=== PATIENT | male | born 1945 | race Caucasian/White ===

== ENCOUNTER 2017-10-02 10:36 | Emergency (ER) | payer OTHER, MEDICARE ==
[~2017-10-02] VITALS: Ht 182.9 cm; Wt 83.9 kg
[2017-10-02 12:32] VITALS: BP 169/79
== END 2017-10-02 14:12 | disposition home or self-care (01) ==
LOC: ED 10:36
DX: S42.202A Unspecified fracture of upper end of left humerus, initial encounter for closed fracture (principal); S01.112A Laceration without foreign body of left eyelid and periocular area, initial encounter; S50.312A Abrasion of left elbow, initial encounter; S50.311A Abrasion of right elbow, initial encounter; G20 Parkinson's disease; F03.90 Unspecified dementia, unspecified severity, without behavioral disturbance, psychotic disturbance, mood disturbance, and anxiety; W17.89XA Other fall from one level to another, initial encounter; Y93.89 Activity, other specified; Y99.8 Other external cause status; Y92.89 Other specified places as the place of occurrence of the external cause
CPT/HCPCS: 90715; J1885; J2001

== ENCOUNTER → 2017-10-03 | Outpatient (CLI) | payer OTHER, MEDICARE ==
[~2017-10-03] MED LIST: ARICEPT10 MG PO; COZAAR100 MG PO; FLUOXETINE HYDR20 M2 PO; LIPITOR80 MG PO; SEROQUEL100 MG PO; SINEMET 25-1001 TAB PO; TAMSULOSIN HYD0.4 M1 PO
== END | disposition home or self-care (01) ==
LOC: RD 11:32
PROC: BP2 Imaging, Non-Axial Upper Bones, Computerized Tomography (CT Scan) (ICD-10-PCS; principal; 2017-10-03)
DX: S42.202A Unspecified fracture of upper end of left humerus, initial encounter for closed fracture (principal); X58.XXXA Exposure to other specified factors, initial encounter; Y92.9 Unspecified place or not applicable

== ENCOUNTER 2017-10-04 08:26 | Inpatient (IN) | payer OTHER, MEDICARE ==
[~2017-10-04] VITALS: Ht 170.2 cm; Wt 75.0 kg
[2017-10-04 09:39] LABS: CARBON DIOXIDE 27.6 mmol/L (21-32); CHLORIDE SERUM 99 mmol/L (98-107); CREATININE SERUM 2.2 mg/dL (0.7-1.3); GLUCOSE SERUM 124 mg/dL (74-106); POTASSIUM SERUM 3.9 mmol/L (3.5-5.1); SODIUM SERUM 135 mmol/L (136-145)
[2017-10-04 09:40] LABS: BASOPHIL % 0.6 % (0-2); PLATELET COUNT 198 x10^3mcL (130-400); RED CELL DISTRIBUTION WIDTH 14.2 % (11.5-14.5)
[2017-10-04 09:44] LABS: ALBUMIN 3.8 g/dL (3.4-5.0); ALKALINE PHOSPHATASE 127 U/L (46-116); ALT/SGPT 12 U/L (16-63); AST/SGOT 23 U/L (15-37); CHOLESTEROL 189 mg/dL (<200); LIPASE 96 IU/L (73-393); TOTAL PROTEIN, SERUM 7.4 g/dL (6.4-8.2); TRIGLYCERIDES 61 mg/dL (<150)
[2017-10-04 09:46] LABS: CHOLESTEROL/HDL RATIO 1.7; HDL CHOLESTEROL 113 mg/dL (40-60)
[2017-10-04 09:54] LABS: T3 TOTAL 0.69 ng/mL
[2017-10-04 09:58] LABS: FREE T4 0.95 ng/dL (0.76-1.46); FREE THYROXINE INDEX 2.5 ug/dL (1.4-4.5)
[2017-10-04 10:18] LABS: MAGNESIUM 2.4 mg/dL (1.8-2.4); PHOSPHOROUS 3.6 mg/dL (2.5-4.9)
[2017-10-04 10:32] VITALS: BP 148/64
[2017-10-04 12:07] LABS: microscopic required? NO
[2017-10-04] MEDS ORDERED: FLUOXETINE HYDR20 M2 PO (12:58)
[2017-10-04] MEDS ORDERED: TAMSULOSIN HYD0.4 M1 PO (12:58)
[2017-10-04] MEDS ORDERED: LIPITOR80 MG PO (12:59)
[2017-10-04] MEDS ORDERED: ARICEPT10 MG PO (12:59)
[2017-10-04] MEDS ORDERED: COZAAR100 MG PO (12:59)
[2017-10-04] MEDS ORDERED: SEROQUEL100 MG PO (13:00)
[2017-10-04] MEDS ORDERED: SINEMET 25-1001 TAB PO (13:01)
[2017-10-04 13:03] LABS: urine erythrocyte NEGATIVE (NEGATIVE)
[2017-10-04 13:40] LABS: AMPHETAMINE QUAL UR NONE DETECTED (NEG <=1000)
[2017-10-04 17:08] VITALS: BP 153/58
[2017-10-04 21:50] VITALS: BP 150/53
[2017-10-05 04:06] VITALS: BP 97/65
[2017-10-05 06:11] LABS: BASOPHIL % 0.7 % (0-2); PLATELET COUNT 169 x10^3mcL (130-400); RED CELL DISTRIBUTION WIDTH 14.3 % (11.5-14.5)
[2017-10-05 06:48] LABS: CALCIUM 8.3 mg/dL (8.5-10.1); CARBON DIOXIDE 26.2 mmol/L (21-32); CHLORIDE SERUM 107 mmol/L (98-107); CREATININE SERUM 1.2 mg/dL (0.7-1.3); GLUCOSE SERUM 86 mg/dL (74-106); POTASSIUM SERUM 3.9 mmol/L (3.5-5.1); SODIUM SERUM 141 mmol/L (136-145)
[2017-10-05 08:08] VITALS: BP 160/60; BP 168/75
[2017-10-05 11:01] VITALS: BP 122/55
[2017-10-05 15:50] VITALS: BP 129/44
[2017-10-05 17:06] VITALS: Ht 170.2 cm; Wt 75.0 kg
[2017-10-05 21:10] VITALS: BP 139/60
[2017-10-06 06:02] LABS: BASOPHIL % 0.4 % (0-2); PLATELET COUNT 153 x10^3mcL (130-400)
[2017-10-06 06:18] VITALS: BP 142/67
[2017-10-06 06:29] LABS: CALCIUM 7.8 mg/dL (8.5-10.1); CARBON DIOXIDE 26.1 mmol/L (21-32); CHLORIDE SERUM 104 mmol/L (98-107); CREATININE SERUM 0.9 mg/dL (0.7-1.3); GLUCOSE SERUM 113 mg/dL (74-106); POTASSIUM SERUM 3.9 mmol/L (3.5-5.1); SODIUM SERUM 139 mmol/L (136-145)
[2017-10-06 09:18] VITALS: BP 143/55
[2017-10-06 14:46] VITALS: BP 154/66
[2017-10-07 06:27] VITALS: BP 164/74
[2017-10-07 06:45] LABS: CALCIUM 7.9 mg/dL (8.5-10.1); CARBON DIOXIDE 25.4 mmol/L (21-32); CHLORIDE SERUM 105 mmol/L (98-107); CREATININE SERUM 0.9 mg/dL (0.7-1.3); GLUCOSE SERUM 90 mg/dL (74-106); MAGNESIUM 1.8 mg/dL (1.8-2.4); PHOSPHOROUS 3.3 mg/dL (2.5-4.9); SODIUM SERUM 140 mmol/L (136-145)
[2017-10-07 06:50] LABS: BASOPHIL % 0.6 % (0-2); PLATELET COUNT 159 x10^3mcL (130-400); RED CELL DISTRIBUTION WIDTH 13.9 % (11.5-14.5)
[2017-10-07 08:36] VITALS: BP 155/80
[2017-10-07 13:36] VITALS: BP 110/46
[2017-10-07 22:00] VITALS: BP 155/80
[2017-10-08 06:00] VITALS: BP 143/55
[2017-10-08 07:49] LABS: BASOPHIL % 0.5 % (0-2); PLATELET COUNT 174 x10^3mcL (130-400); RED CELL DISTRIBUTION WIDTH 14.1 % (11.5-14.5)
[2017-10-08 08:01] LABS: CARBON DIOXIDE 28.3 mmol/L (21-32); CHLORIDE SERUM 105 mmol/L (98-107); CREATININE SERUM 0.8 mg/dL (0.7-1.3); GLUCOSE SERUM 94 mg/dL (74-106); MAGNESIUM 1.8 mg/dL (1.8-2.4); PHOSPHOROUS 2.7 mg/dL (2.5-4.9); POTASSIUM SERUM 3.4 mmol/L (3.5-5.1); SODIUM SERUM 140 mmol/L (136-145)
[2017-10-08 09:03] VITALS: BP 149/57
[2017-10-08 13:09] VITALS: BP 130/48
[2017-10-08 17:34] VITALS: BP 119/83
[2017-10-08 22:21] VITALS: BP 149/56
[2017-10-09 05:15] VITALS: BP 157/57
[2017-10-09 06:25] LABS: CALCIUM 8.3 mg/dL (8.5-10.1); CARBON DIOXIDE 29.3 mmol/L (21-32); CHLORIDE SERUM 105 mmol/L (98-107); CREATININE SERUM 0.8 mg/dL (0.7-1.3); GLUCOSE SERUM 91 mg/dL (74-106); MAGNESIUM 1.8 mg/dL (1.8-2.4); PHOSPHOROUS 3.2 mg/dL (2.5-4.9); POTASSIUM SERUM 3.4 mmol/L (3.5-5.1); SODIUM SERUM 140 mmol/L (136-145)
[2017-10-09 06:38] LABS: BASOPHIL % 0.7 % (0-2); PLATELET COUNT 196 x10^3mcL (130-400); RED CELL DISTRIBUTION WIDTH 13.5 % (11.5-14.5)
[2017-10-09 09:24] VITALS: BP 123/72
[2017-10-09] MEDS ORDERED: KETOROLAC30 MG/ML IV (13:30)
[2017-10-09] MEDS ORDERED: COL100 PO (13:30)
[2017-10-09 13:54] VITALS: BP 123/72
[2017-10-09 17:07] VITALS: BP 149/71
== END 2017-10-09 18:27 | DRG 483 ==
LOC: ED 08:26 → MU 09:17 → DU 09:17 → MU 10-09 09:09
PROVIDERS: Neuromusculoskeletal Medicine, Sports Medicine; Specialist; ADMIT Family Medicine Sports Medicine
PROC: 0RRK0J6 Replacement of Left Shoulder Joint with Synthetic Substitute, Humeral Surface, Open Approach (ICD-10-PCS; principal; 2017-10-05 11:30)
DX: S42.202A Unspecified fracture of upper end of left humerus, initial encounter for closed fracture (principal); N17.0 Acute kidney failure with tubular necrosis; E87.1 Hypo-osmolality and hyponatremia; E87.6 Hypokalemia; S00.83XA Contusion of other part of head, initial encounter; G31.83 Neurocognitive disorder with Lewy bodies; F02.80 Dementia in other diseases classified elsewhere, unspecified severity, without behavioral disturbance, psychotic disturbance, mood disturbance, and anxiety; I10 Essential (primary) hypertension; D64.9 Anemia, unspecified; E78.00 Pure hypercholesterolemia, unspecified; F39 Unspecified mood [affective] disorder; F17.210 Nicotine dependence, cigarettes, uncomplicated; Z68.25 Body mass index [BMI] 25.0-25.9, adult; W18.30XA Fall on same level, unspecified, initial encounter; Y92.009 Unspecified place in unspecified non-institutional (private) residence as the place of occurrence of the external cause
CPT/HCPCS: 76001; 83880; 84439; 97110-GP; 97116-GP; 97530-GP; C1713; J0690; J1200; J1630; J1644; J1885; J2704; J3010; J3490; J7030; J7120; Q0092